=== PATIENT | male | born 1950 | race African-American/Black ===

== ENCOUNTER → 2017-10-16 | Outpatient (CLI) | payer OTHER | END | disposition home or self-care (01) | LOC: CFH 10:39 | PROVIDERS: ATTEND Internal Medicine | DX: R63.4 Abnormal weight loss (principal); R63.6 Underweight | CPT/HCPCS: 76700 ==

== ENCOUNTER → 2020-07-20 | Outpatient (CLI) | payer OTHER | END | disposition home or self-care (01) | LOC: CFH 07:04 | PROVIDERS: ATTEND Internal Medicine | DX: I77.811 Abdominal aortic ectasia (principal); N28.89 Other specified disorders of kidney and ureter; R63.4 Abnormal weight loss; R06.02 Shortness of breath; N18.30 Chronic kidney disease, stage 3 unspecified | CPT/HCPCS: 71046; 76700 ==